=== PATIENT | male | born 1995 | race African-American/Black ===

== ENCOUNTER 2024-04-24 17:36 | Emergency (ER) | payer MEDICAID, SELFPAY ==
--- NOTE | ~2024-04-24 | CT_ITS ---
CLINICAL HISTORY: low back pain, low back injury CT lumbar spine without contrast. No comparison. Findings: No acute fractures are seen. There is minimal retrolisthesis of L4 on L5. There is mild narrowing of the L4-5 and L5-S1 discs. Early L4-5 and L5-S1 facet disease. Developmental narrowing of the spinal canal. Narrowing left L5-S1 neural foramen. L4-5 disc bulge with a possible disc extrusion causing severe spinal stenosis. Impression: No acute fractures. Additional findings as above. This document has been electronically signed by: Ezio Zuniga MD on 04/24/2024 19:59:09
[2024-04-24 18:02] VITALS: BP 109/65; PULSE 60; RESP 16; TEMP 36.4; O2SAT 98; BMI 29.8
--- NOTE | 2024-04-24 18:06 | ED.GENADULT ---
HPI - General Adult General Chief complaint: Back Pain/Injury Stated complaint: lower back pain/inj Time Seen by Provider: 04/24/24 21:40 Source: patient and family Mode of arrival: ambulatory Limitations: no limitations History of Present Illness ED Provider: DR. Cardoso HPI narrative: 28-year-old male history chronic back pain came in with low back pain after he was trying to start generator by pulling a recoil cord patient stated he felt that his lower back became painful and stiff after he D-dimer, patient tried ibuprofen at home with no relief his symptoms, no history of IV drug abuse, no fever, no chills, no dysuria, no frequency urination, no hematuria. No urinary or stool incontinence. Related Data Previous Rx's ?Medication ?Instructions ?Recorded cyclobenzaprine 10 mg tablet 10 mg PO TID PRN muscle spasm #10 04/24/24 tabs ibuprofen 800 mg tablet 800 mg PO Q8H PRN pain #10 tabs 04/24/24 Allergies Allergy/AdvReac Type Severity Reaction Status Date / Time No Known Allergies Allergy Verified 04/24/24 18:04 Review of Systems Review of Systems: All other systems are reviewed and are negative Constitutional: Reports as per HPI and Reports no additional constitutional complaints Eyes: Reports as per HPI and Reports no additional eye complaints Reports system reviewed and no additional complaints, except as documented Cardiovascular: Reports as per HPI and Reports no additional cardiovascular complaints Respiratory: Reports as per HPI and Reports no additional respiratory complaints Gastrointestinal: Reports as per HPI and Reports no additional gastrointestinal complaints Genitourinary: Reports no additional female genitourinary complaints Musculoskeletal: Reports no additional musculoskeletal complaints Skin/Breast: Reports system reviewed and no additional complaints, except as docu Psychiatric: Reports no additional psychiatric complaints Endocrine: Reports no additional endocrine complaints Hematologic/Lymphatic: Reports no additional hematologic/lymphatic complaints Allergic/Immunologic: Reports no additional allergic/immunologic complaints Reports system reviewed and no additional complaints, except as documented and Reports Abnormal speech present [facility] Social History Social History Advance Directives: No Advance Directives Information Provided: No Do you have a plan to hurt others: No Plan Physical Exam ED Vital Signs: Vital Signs - 24 hr 04/24/24 18:02 04/24/24 22:31 Temperature 97.6 F Pulse Rate 60 Respiratory Rate 16 18 Blood Pressure 109/65 Pulse Oximetry 98 Oxygen Delivery Method Room Air BMI result Body Mass Index 29.8 Vital signs have been reviewed and appear to be correct. Blood pressure elevated. Heart rate normal. Respiratory rate normal. Temperature normal. Oxygen saturation normal. Appearance: Alert. Oriented X3. No acute distress. Head: Normal external exam. Normocephalic. Atraumatic. No Andrews signs noted. No raccoon eyes noted Eyes: PERRLA. EOMI. Conjunctiva and sclera normal. Eyelids normal. ENT: TM's Normal. Pharynx normal. Uvula midline. Moist mucous membranes. No trismus noted. No drooling noted. No muffled voice noted. Neck: Normal inspection. Neck supple. FROM. No adenopathy. Thyroid Normal. No meningeal signs. No neck mass noted. CVS: Normal heart rate and rhythm. Heart sound normal. No murmurs noted. Pulses normal throughout. Respiratory: No respiratory distress. Painless inspiration. Breath sounds normal. No wheezes/rales/rhonchi noted. Chest nontender. No accessory muscle usage noted or decreased air movement noted. Abdomen: Soft and nontender. Bowel sounds normal in all 4 quadrants. No distention noted. No organomegaly noted. No visible injury noted. Back: No CVA tenderness. Full range of motion noted. Skin: Skin warm and dry. Normal skin color. Normal skin turgor. No rashes/lesions/lacerations noted. Extremities: No lower extremity edema. Extremities exhibit normal range of motion. Extremities nontender. Neuro: Mental status: Normal attention, orientation, memory, and affect. Cranial nerves: Pupils are equal, round and reactive to light, EOMI, visual padilla are fall, face is symmetric, facial sensations are normal. Motor examination normal muscle tone, strength to 4 extremities. DTR are +2, planter's are flexor. Sensory exam; normal coordination, no ataxia, gait stable. Cerebellar exam: [id number] and [id number] is normal. Extrapyramidal system: No tremors, no rigidity with normal facial expressions. Pronator drift not present , perianal sensation is intact, able to ambulate on both heels and toes. Course Course Course Narrative: RME performed by Hellen Meier PA-C. Patient is a 28 year old assigned male at presenting to the emergency department with low back pain. Patient states he lifted a generator earlier today and strain his lumbar spine. Patient states that he took ibuprofen and tried to rest but it did not help. Detailed physical exam and review of systems are deferred to the speech clinician. Imaging ordered. Patient placed back in the waiting room pending room availability and results. Reevaluation(s) Reevaluation #1: Pulled muscle in the lumbar region, normal neuro exam, no concern of epidural abscess patient has no fever or history of using IV drugs. CT is showing no acute fracture. Time: 23:18 Medications Administered Discontinued Medications Generic Name Dose Route Start Last Admin Trade Name Freq PRN Reason Stop Dose Admin Cyclobenzaprine HCl 10 mg 04/24/24 21:48 04/24/24 22:29 Cyclobenzaprine Hcl 10 Mg Tablet PO 04/24/24 21:49 10 mg ONCE ONE Administration Ketorolac Tromethamine 15 mg 04/24/24 21:48 04/24/24 22:30 Ketorolac Tromethamine 15 Mg/Ml Vial IM 04/24/24 21:49 15 mg ONCE ONE Administration Morphine Sulfate 1 mg 04/24/24 21:48 04/24/24 22:31 Morphine Sulfate 2 Mg/Ml Cartridge IM 04/24/24 21:49 1 mg ONCE ONE Administration Protocol Medical Decision Making Differential Diagnosis Differential Diagnoses: The differential diagnosis associated with the presentation includes ( Lumbar spine fracture, lumbar muscle sprain, pyelonephritis, kidney stone, cauda equina syndrome , UTI.) Admission/Observation Consideration of admission/observation: Escalation of care including admission/observation considered Lab Data Labs: Lab Results 04/24/24 Range/Units 22:37 Urine Color Yellow Urine Appearance Clear Urine pH 6.5 (5.0-9.0) Ur Specific [place] >= 1.030 H (1.005-1.025) Urine Protein Trace (Neg-Trace) mg/dL Urine Glucose (UA) Negative (Negative) mg/dL Urine Ketones Negative (Negative) mg/dL Urine Blood Negative (Negative) Urine Nitrite Negative (Negative) Ur Leukocyte Esterase Negative (Negative) Independent Interpretation I performed an independent interpretation of an: CT Scan ( Lumbar spine CT:No acute fractures are seen. There is minimal retrolisthesis of L4 on L5. There is mild narrowing of the L4-5 and L5-S1 discs. Early L4-5 and L5-S1 facet disease. Developmental narrowing of the spinal canal. Narrowing left L5-S1 neural foramen. L4-5 disc bulge with a possible dis) Radiology Impression Discussion of test interpretation with radiology: I have reviewed the radiologist's reading. Chronic Conditions Patient?s care impacted by: Other ( Chronic low back pain.) Discharge Plan Discharge Clinical Impression: Strain of lumbar region Patient Disposition: Home, Self-Care Instructions: Muscle Strain (ED) Additional Instructions: rest, avoid any strenuous activity or heavy lifting, use the medicine as prescribed, seek medical attention if you develop weakness in your legs or started to have urinary or stool incontinence. Prescriptions: New ibuprofen 800 mg tablet 800 mg PO Q8H PRN (Reason: pain) Qty: 10 0RF cyclobenzaprine 10 mg tablet 10 mg PO TID PRN (Reason: muscle spasm) Qty: 10 0RF Stand Alone Forms: Work/School Release Print Language: Haitian
[2024-04-24] MEDS: Cyclobenzaprine HCl 10 MG TABLET PO (22:29)
[2024-04-24] MEDS: Ketorolac Tromethamine 15 MG/ML VIAL IM (22:30)
[2024-04-24 22:31] VITALS: RESP 18
[2024-04-24] MEDS: Morphine Sulfate 2 MG/ML CARTRIDGE 1 MG IM (22:31)
[2024-04-24 22:59] LABS: Appearance Urine Clear; Color Urine Yellow; Glucose Urine UA Negative (Negative); Leukocyte Esterase Urine Negative (Negative); Nitrite Urine Negative (Negative); PH 6.5 (5.0-9.0); Specific Gravity - Urine >= 1.030 (1.005-1.025); Urine Blood Negative (Negative); Urine Ketones Negative (Negative); Urine Protein Trace mg/dL (Neg-Trace)
[2024-04-24 23:30] VITALS: BP 110/71; PULSE 74; RESP 18; TEMP 36.9; O2SAT 98
== END 2024-04-24 23:31 | disposition home or self-care (01) ==
PROVIDERS: Emergency Provider Emergency Medicine
DX: S39.012A Strain of muscle, fascia and tendon of lower back, initial encounter (principal); X50.9XXA Other and unspecified overexertion or strenuous movements or postures, initial encounter; Y93.89 Activity, other specified; Y92.009 Unspecified place in unspecified non-institutional (private) residence as the place of occurrence of the external cause; Y99.9 Unspecified external cause status
CPT/HCPCS: 72131; 81003; 96372; 99284; J1885; J2270

== ENCOUNTER → 2024-04-24 18:06 | Outpatient (BNV) | payer MEDICAID, SELFPAY | PROVIDERS: Visit Provider Radiology Diagnostic Radiology | DX: S39.92XA Unspecified injury of lower back, initial encounter (principal) | CPT/HCPCS: 72131 ==